=== PATIENT | female | born 1940 | race Caucasian/White ===

== ENCOUNTER 2020-01-24 21:33 | Observation (INO) | payer MEDICARE, SELFPAY ==
--- NOTE | ~2020-01-24 | CT_ITS ---
EXAMINATION: CT abdomen pelvis w con EXAM DATE: 01/24/2020 22:34 INDICATION: Abdominal pain, fever, flank pain. TECHNIQUE: Spiral CT of the abdomen and pelvis was performed following intravenous injection of 100 m L Omnipaque 350. Axial, coronal and sagittal images were reviewed. The dose-length product (DLP) fo r this examination was 678.92 mGy-cm. The exposure was tailored according to patient size (auto mA e xposure control), and iterative reconstruction (ASIR) was used as additional dose reduction technique . There is no prior study for comparison. FINDINGS: There is a hypodensity in the left liver lobe measuring 1.1 cm consistent with a cyst. The spleen, pancreas, and adrenal glands are unremarkable. Gallbladder is unremarkable. No biliary obs truction. There are regions of mildly heterogeneous left renal parenchymal enhancement, possible escobar lonephritis. Please correlate with urinalysis. There is a nonobstructing stone in the dependent aspec t of the left renal pelvis measuring 1.3 cm. The uterus is unremarkable. The bladder is severely d istended. There is no retroperitoneal or pelvic lymphadenopathy. There is mild to moderate scatter ed arteriosclerotic disease. The appendix is normal. The stomach and small bowel are unremarkable. There is expected amount of c olonic stool. No free intraperitoneal gas. The heart is normal in size. There are no pericardial or pleural effusions. The lung bases are unremarkable. There are no osteoblastic or osteolytic les ions identified. IMPRESSION: 1. Possible left-sided pyelonephritis. 2. Severely distended bladder (neurogenic?). 3. Left renal pelvic nonobstructing 1.3 cm stone. Reviewed, dictated and finalized at location A.
[2020-01-24 21:40] VITALS: BP 164/74; PULSE 124; RESP 21; TEMP 37.1; O2SAT 100
--- NOTE | 2020-01-24 21:55 | ED.ABDPAIN ---
HPI - Abdominal Pain General Chief Complaint: Urogenital-Female Stated Complaint: fever, flank pain Time Seen by Provider: 01/24/20 21:39 Source: patient and RN notes reviewed Mode of arrival: ambulatory Limitations: no limitations History of Present Illness HPI narrative: Pt is a 79 y/o female who presents to the ED with c/o lt flank pain starting this afternoon. She notes that she has a Hx of chronic urinary retention, stating that she is normally catheterizes herself several times per day. Pt notes that she began feeling sick around 16:00 this afternoon. She reports pain in her lt flank, cramping in her suprapubic region, nausea, and a frontal headache. Pt also notes having a fever, but denies any vomiting, SOB, cough, or dysuria. She notes that she hasn't taken any Tylenol for her symptoms. MD elicited complaint: flank pain Onset (ago): hour(s) (several) Location: L flank Associated symptoms: nausea, fever and other (suprapubic cramping; frontal headache; urinary retention (chronic)) Related Data Home Medications Medication Instructions Recorded Confirmed cholecalciferol (vitamin D3) 100 mcg PO DAILY 01/24/20 [Vitamin D3] hawthorn [hawthorn ann] 500 mg PO 01/24/20 metoprolol tartrate 12.5 mg PO BID 01/24/20 zinc 50 mg PO DAILY 01/24/20 Allergies Allergy/AdvReac Type Severity Reaction Status Date / Time No Known Allergies Allergy Verified 01/24/20 21:44 Review of Systems Review of Systems: All systems reviewed & are unremarkable except as noted in HPI and below Constitutional: Constitutional: Reports fever(s) and Reports headache(s) (frontal) Respiratory: Respiratory: Denies cough and Denies dyspnea Gastrointestinal: Gastrointestinal: Reports abdominal pain (suprapubic cramping), Reports nausea and Denies vomiting Genitourinary: Genitourinary: Denies dysuria, Reports flank pain (lt flank pain) and Reports other (urinary retention (chronic)) [facility] Past Medical History Medical History (Updated 01/25/20 @ 00:52 by Mando Morin DO) History of urinary retention Surgical History Surgical History Surgical history unknown Social History Social History Smoking status: Unknown if ever smoked Exam Narrative: Exam Narrative: APPEARANCE: No acute distress, nontoxic, resting in bed EYES: EOMI HEENT: Normocephalic, atraumatic, OMM RESPIRATORY: No respiratory distress Clear to auscultation bilaterally with no rhonchi wheezing or rales. CARDIOVASCULAR: Tachycardic and regular without murmurs rubs or gallops. ABDOMINAL: Soft, nontender, nondistended, no rebound or guarding during palpation left flank MUSCULOSKELETAl: Moves all extremities. No clubbing, cyanosis or edema. NEURO: Awake and alert. Following commands, speech normal, no focal deficits SKIN:: Warm, dry. No rashes lesions or abrasions PSYCHIATRIC: Normal affect/mood, Course Course Emergency Course: Patient did complain of some lower midsternal and epigastric chest pain EKG was obtained that showed left bundle branch block. The patient was given a GI cocktail with resolution of the pain. The patient not taken her evening metoprolol 12.5 mg and did take it in the ER Discussed with patient and family results of workup and diagnosis. Discussed need for admission. Patient and family understand and agree to current treatment plan Consultations Consultation #1: Discussed case with hospitalist, Dr. Arzola. He accepts admission. Would like urology consulted. Date: 01/24/20 Time: 23:26 Consultation #2: Discussed case with urologist, Dr. Matthews. He agrees with consult. Would like me to put in catheter. Date: 01/25/20 Time: 00:06 Vital Signs Vital signs: Vital Signs Temperature 98.7 F 01/24/20 21:40 Pulse Rate 124 H 01/24/20 21:40 Respiratory Rate 21 H 01/24/20 21:40 Blood Pressure 164/74 H 01/24/20 21:40 Pulse Oximetry 100 01/24/20 21:
[2020-01-24 22:06] LABS: Basophils Absolute Auto 0.1 K/mm3 (0.0-0.1); Basophils Percent Auto 0.7 % (0.2-1.2); Eosinophils Absolute Auto 0.1 K/mm3 (0-0.3); Eosinophils Percent Auto 1.5 % (0-4.4); Immature Granulocyte Absolute 0.02 K/mm3 (0.00-0.031); Immature Granulocyte Percent A 0.2 % (0-0.5); Lymphocytes Absolute Auto 0.83 K/mm3 (0.9-3.2); Lymphocytes Percent Auto 9.7 % (18.3-44.2); Mean Corpuscular HGB Conc 32.6 g/dl (32-36); Mean Corpuscular Hemoglobin 30.7 pg (26-34); Mean Corpuscular Volume 94.3 fl (80-100); Mean Platelet Volume 11.1 fl (7.4-10.4); Monocytes Absolute Auto 0.3 K/mm3 (0.1-0.6); Monocytes Percent Auto 3.4 % (2.6-8.5); Neutrophils Absolute Auto 7.2 K/mm3 (1.3-6.7); Neutrophils Percent Auto 84.5 % (45.5-73.1); Platelet Count Result 207 k/mm3 (150-375); Red Blood Count 4.88 M/mm3 (4.2-5.4); Red Cell Distribution Width 12.9 % (11.5-14.5); White Blood Count 8.6 K/mm3 (4.5-10.0)
[2020-01-24] MEDS: SODIUM CHLORIDE 0.9% IV 1,000 ML 999 ML IV CONT (22:16)
[2020-01-24 22:18] LABS: Alanine Aminotransferase 15 U/L (4-35); Albumin Level 4.8 g/dL (3.5-5.1); Alkaline Phosphatase 75 U/L (38-126); Aspartate Amino Transferase 26 U/L (14-36); Bilirubin,Total 0.3 mg/dL (0.2-1.3); Blood Urea Nitrogen 17 mg/dL (7-17); Calcium 9.3 mg/dL (8.4-10.2); Carbon Dioxide 29 mmol/L (22-30); Chloride 100 mmol/L (98-107); Estimated CRCL calculation 42 ml/min; Estimated Glomerular Filt Rate 60; Glucose 115 mg/dL (65-105); Potassium 4.3 mmol/L (3.4-5.0); Sodium 138 mmol/L (137-145)
--- NOTE | 2020-01-24 22:41 | ECG_ITS ---
Measurements Intervals [place] Rate: 107 P: 62 NM: 191 QRS: -28 QRSD: 132 T: 122 QT: 375 QTc: 501 Interpretive Statements SINUS TACHYCARDIA VENTRICULAR PREMATURE COMPLEX LEFT BUNDLE BRANCH BLOCK ABNORMAL ECG Electronically Signed On 01-25-2020 7:06:13 CDT by Senthil Hernandez D.O.
[2020-01-24 23:06] VITALS: BP 145/53; PULSE 109; RESP 17; O2SAT 98
[2020-01-24 23:18] LABS: Add Urine Microscopic? YES; Appearance Urine Clear (Clear); Bacteria Urine Trace /hpf; Bilirubin Urine Negative (Negative); Blood Urine 1+ (Negative); Color Urine Straw (Yellow); Glucose Urine UA Negative (Negative); Ketones Urine Negative (Negative); Leukocyte Esterase Ur 2+ LEU/UL (Negative); Nitrate Urine Positive (Negative); Protein Urine 1+ mg/dL (Negative); RBC Urine 0-2 /hpf (0-2); Specific Grav Ur 1.005 (1.001-1.035); Urobilinogen Urine Negative mg/dL (<2.0)
[2020-01-24 23:22] LABS: Troponin I < 0.012 ng/mL (0.000-0.034)
[2020-01-24 23:43] LABS: Magnesium 2.3 mg/dL (1.6-2.3)
[2020-01-24 23:59] VITALS: BP 122/58; PULSE 102; RESP 14; O2SAT 98
[2020-01-25] VITALS (9 sets, daily range): BP systolic 99–123; BP diastolic 37–49; PULSE 72–100; RESP 16–18; TEMP 36.1–37.7; O2SAT 96–99; BMI 25.7
[2020-01-25 00:23] LABS: Basophils Absolute Auto 0.1 K/mm3 (0.0-0.1); Basophils Percent Auto 0.6 % (0.2-1.2); Eosinophils Absolute Auto 0.1 K/mm3 (0-0.3); Eosinophils Percent Auto 0.7 % (0-4.4); Hematocrit 41.5 % (37.0-47.0); Hemoglobin 13.7 g/dL (12.0-15.0); Immature Granulocyte Absolute 0.05 K/mm3 (0.00-0.031); Immature Granulocyte Percent A 0.5 % (0-0.5); Lymphocytes Absolute Auto 0.28 K/mm3 (0.9-3.2); Mean Corpuscular Volume 93.9 fl (80-100); Mean Platelet Volume 11.6 fl (7.4-10.4); Monocytes Absolute Auto 0.5 K/mm3 (0.1-0.6); Monocytes Percent Auto 5.5 % (2.6-8.5); Neutrophils Absolute Auto 8.4 K/mm3 (1.3-6.7); Neutrophils Percent Auto 89.7 % (45.5-73.1); Platelet Count Result 160 k/mm3 (150-375); Red Blood Count 4.42 M/mm3 (4.2-5.4); Red Cell Distribution Width 12.9 % (11.5-14.5); White Blood Count 9.4 K/mm3 (4.5-10.0)
[2020-01-25 00:35] LABS: Lactic Acid Reflex 1.9 mmol/L (0.7-2.1)
[2020-01-25] MEDS: SODIUM CHLORIDE 0.9% IV 1,000 ML 125 ML IV CONT ×2 (01:00→07:47)
[2020-01-25 01:15] LABS: Blood Urea Nitrogen 16 mg/dL (7-17); Calcium 8.4 mg/dL (8.4-10.2); Carbon Dioxide 23 mmol/L (22-30); Chloride 107 mmol/L (98-107); Estimated CRCL calculation 47 ml/min; Estimated Glomerular Filt Rate > 60; Glucose 122 mg/dL (65-105); Potassium 4.3 mmol/L (3.4-5.0); Sodium 135 mmol/L (137-145)
--- NOTE | 2020-01-25 01:28 | PC.NURSE ---
This patient, Charlotte Pandya, was admitted to IMU Room 211-01. Patient/family oriented to hospital policies and general routines including ID bracelet, bed and alarms, visiting hours, pain management, procedures, bathroom and other care routines, personal items, smoking policy, room service/diet, and visiting hours. Valuables list has been completed. Information on how to activate the Rapid Response Team has been discussed. Patient/Family are encouraged to report perceived risks to care and to ask questions if they do not understand what they are told or what they should do.
--- NOTE | 2020-01-25 02:04 | PM.IMHP ---
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 with a complaint of left lower back and flank pain that started yesterday afternoon. She denies any dysuria or gross hematuria but she has noticed that her urine has a foul smell. Associated symptoms included fever w/ a Tmax of 100.5 F, dizzyness, suprapubic pain, and nausea. She denies any vomiting, diarrhea, or rectal bleeding. She also experienced palpitations at home today. The patient was evaluated in the ER [facility] and was found to have possible left sided pyelonephritis on CT. On her way back from radiology she started to experience mid sternal chest pressure. She was given a GI cocktail in the ER which relieved her discomfort. ON my encounter with her she still has some mile left flank pain but denies any other symptoms. Her last UTI was about 3 years ago. She hasn't been on any antibiotics recently. Urology was consulted by ER provider. Review of Systems Review of Systems: All systems reviewed & are unremarkable except as noted in HPI and below PMFSH Past Medical History Medical History (Updated 01/25/20 @ 02:24 by Lester Arzola MD) Breast cancer CAD (coronary artery disease) History of urinary retention Urinary retention Surgical History Surgical History (Updated 01/25/20 @ 02:17 by Lester Arzola MD) History of coronary artery stent placement Status post left breast lumpectomy Surgical history unknown Family History Family History (Updated 01/25/20 @ 01:56 by Tracey Jean RN) Other Unknown family medical history Social History Social History (Updated 01/25/20 @ 02:18 by Lester Arzola MD) Smoking status: Former smoker Alcohol intake: never Substance use: never Substance use type: does not use Spiritual care concerns: No Agree to blood products: Yes Comments Family medical hx is unremarkable. Meds Home Medications and Allergies Home Medications Medication Instructions Recorded Confirmed Type cholecalciferol (vitamin D3) 100 mcg PO DAILY 01/24/20 01/25/20 History [Vitamin D3] hawthorn [hawthorn ann] 500 mg PO DAILY 01/24/20 01/25/20 History metoprolol tartrate 12.5 mg PO BID 01/24/20 01/25/20 History zinc 50 mg PO DAILY 01/24/20 01/25/20 History Allergies Allergy/AdvReac Type Severity Reaction Status Date / Time No Known Allergies Allergy Verified 01/24/20 21:44 Vital Signs Vital Signs - 24 hr 01/24/20 21:40 01/24/20 23:06 01/24/20 23:59 Temperature 37.1 C Pulse Rate 124 H 109 H 102 H Respiratory Rate 21 H 17 14 Blood Pressure 164/74 H 145/53 H 122/58 L Pulse Oximetry 100 98 98 01/25/20 00:45 01/25/20 01:01 Temperature 36.9 C Pulse Rate 94 89 Respiratory Rate 17 18 Blood Pressure 117/49 L 123/49 L Pulse Oximetry 99 96 Exam Const: General: cooperative, no acute distress, alert and awake Nutritional Appearance: well nourished Orientation/consciousness: patient oriented x3 HENMT: Head: normal to inspection General nose exam: Normal external nose present Face and sinus: normal facial exam Mouth: Yes Normal oral and palatal mucosa present and Yes oropharynx normal Eyes: Pupils: Equal, round and reactive pupils present EOM: EOMs intact bilaterally Neck: Neck: supple and no JVD Thyroid: thyroid normal Lymphatic: lymphadenopathy not noted Chest: Other: No chest wall pressure on palpation+ Resp: Effort & Inspection: normal respiratory effort Auscultation: clear to auscultation bilaterally Cardio: Rate: regular rate Rhythm: regular rhythm Heart sounds: no murmurs GI: Inspection: normal to inspection Auscultation: normal bowel sounds Back/Spine/Pelvis: Back: CVA tenderness (Left sided++ ) Ski
[2020-01-25 03:24] LABS: Troponin I < 0.012 ng/mL (0.000-0.034)
[2020-01-25 06:14] LABS: Basophils Absolute Auto 0.1 K/mm3 (0.0-0.1); Basophils Percent Auto 0.5 % (0.2-1.2); Eosinophils Percent Auto 0.2 % (0-4.4); Hematocrit 40.5 % (37.0-47.0); Hemoglobin 13.6 g/dL (12.0-15.0); Immature Granulocyte Absolute 0.08 K/mm3 (0.00-0.031); Immature Granulocyte Percent A 0.8 % (0-0.5); Lymphocytes Absolute Auto 0.48 K/mm3 (0.9-3.2); Lymphocytes Percent Auto 4.6 % (18.3-44.2); Mean Corpuscular HGB Conc 33.6 g/dl (32-36); Mean Corpuscular Hemoglobin 31.2 pg (26-34); Mean Corpuscular Volume 92.9 fl (80-100); Mean Platelet Volume 11.3 fl (7.4-10.4); Monocytes Percent Auto 9.2 % (2.6-8.5); Neutrophils Absolute Auto 8.8 K/mm3 (1.3-6.7); Neutrophils Percent Auto 84.7 % (45.5-73.1); Platelet Count Result 162 k/mm3 (150-375); Red Blood Count 4.36 M/mm3 (4.2-5.4); Red Cell Distribution Width 12.8 % (11.5-14.5); White Blood Count 10.4 K/mm3 (4.5-10.0)
[2020-01-25 06:22] LABS: Blood Urea Nitrogen 13 mg/dL (7-17); Carbon Dioxide 23 mmol/L (22-30); Chloride 109 mmol/L (98-107); Estimated CRCL calculation 47 ml/min; Estimated Glomerular Filt Rate > 60; Glucose 119 mg/dL (65-105); Potassium 3.8 mmol/L (3.4-5.0); Sodium 135 mmol/L (137-145)
[2020-01-25 06:35] LABS: Troponin I 0.014 ng/mL (0.000-0.034)
[2020-01-25] MEDS: ZINC SULFATE 220 MG CAPSULE PO (10:00)
[2020-01-25] MEDS: METOPROLOL TARTRATE 12.5 MG TABLET PO (10:00)
--- NOTE | 2020-01-25 10:26 | WPDURCON ---
Assessment and Plan Assessment and plan (1) Calculus of renal pelvis: Code(s): N20.0 - Calculus of kidney Status: Acute (2) Urinary retention: Code(s): R33.9 - Retention of urine, unspecified Status: Chronic (3) Acute pyelonephritis: Code(s): N10 - Acute pyelonephritis Status: Acute Assessment and Plan: Patient appears to have a urinary tract infection with possible early pyelonephritis and a nonobstructing left. She is very anxious for discharge and I am agreeable to that with the understanding that she needs to contact us if she starts to develop significant fever. Her Bernard catheter can be removed and she will resume intermittent self catheterization as before. She can follow-up in 1-2 months at which time we will consider ESWL for her left renal stone. 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 Evaluation with CT scan of the abdomen and pelvis reveals a 13 millimeter nonobstructing left renal stone which she is known to be present for several years. Additionally, her urinalysis appeared to be slightly infected with mild pyuria. She has been admitted empirically started on ceftriaxone. In addition to the above the patient has a known atonic bladder and has been performing intermittent self catheterization for 4 years, without difficulty. Review of Systems Cardiovascular: Cardiovascular: Denies chest pain, Denies lightheadedness, Denies palpitations and Denies dyspnea Respiratory: Respiratory: Denies dyspnea Gastrointestinal: Gastrointestinal: Denies diarrhea, Denies nausea and Denies vomiting Genitourinary: Genitourinary: Denies hematuria and Denies dysuria Endocrine: Endocrine: Denies palpitations PMFSH Past Medical History Medical History Breast cancer CAD (coronary artery disease) History of urinary retention Urinary retention Surgical History Surgical History History of coronary artery stent placement Status post left breast lumpectomy Surgical history unknown Family History Family History Other Unknown family medical history Social History Social History Smoking status: Former smoker Alcohol intake: never Substance use: never Substance use type: does not use Spiritual care concerns: No Agree to blood products: Yes Meds Home Medications and Allergies Home Medications Medication Instructions Recorded Confirmed Type cholecalciferol (vitamin D3) 100 mcg PO DAILY 01/24/20 01/25/20 History [Vitamin D3] hawthorn [hawthorn ann] 500 mg PO DAILY 01/24/20 01/25/20 History metoprolol tartrate 12.5 mg PO BID 01/24/20 01/25/20 History zinc 50 mg PO DAILY 01/24/20 01/25/20 History Allergies Allergy/AdvReac Type Severity Reaction Status Date / Time No Known Allergies Allergy Verified 01/24/20 21:44 Vital Signs Vital Signs - 24 hr 01/24/20 21:40 01/24/20 23:06 01/24/20 23:59 Temperature 98.7 F Pulse Rate 124 H 109 H 102 H Respiratory Rate 21 H 17 14 Blood Pressure 164/74 H 145/53 H 122/58 L Pulse Oximetry 100 98 98 01/25/20 00:45 01/25/20 01:01 01/25/20 02:00 Temperature 98.5 F Pulse Rate 94 89 92 Respiratory Rate 17 18 Blood Pressure 117/49 L 123/49 L Pulse Oximetry 99 96 01/25/20 04:00 01/25/20 05:52 01/25/20 08:00 Temperature 99.8 F H 97.3 F L Pulse Rate 100 88 78 Respiratory Rate 18 16 Blood Pressure 116/49 L 116/37 L Pulse Oximetry 97 97 01/25/20 08:35 01/25/20 10:00 Temper
--- NOTE | 2020-01-25 11:42 | PM.DS ---
DS: Diagnosis Admitting Diagnosis Admitting Diagnosis: Acute pyelonephritis Discharge Diagnosis (1) Acute pyelonephritis: Code(s): N10 - Acute pyelonephritis Status: Acute Assessment and Plan: Patient presents with left sided back pain and noted to have mildly heterogeneous left renal parenchymal enhancement, possible pyelonephritis. UA showing 10-15WBC, 2+ LE. WBC normal. No fevers. There is a left renal pelvic 1.3cm stone that is nonobstructing. She was started on Rocephin. She feels well and is requesting discharge. (2) Chest pain: Qualifiers: Chest pain type: unspecified Qualified Code(s): R07.9 - Chest pain, unspecified Code(s): R07.9 - Chest pain, unspecified Status: Acute Assessment and Plan: Patient had chest pain in the ER and received a GI cocktail. Symptoms resolved. EKG showing left BBB and PVCs. She states she has a history of left BBB. She remained on Metoprolol but refused statin therapy and Aspirin. She voices understanding of the benefits of these medications but declines to take them. Nuclear stress test last year was negative. (3) Calculus of renal pelvis: Code(s): N20.0 - Calculus of kidney Status: Acute Assessment and Plan: As above. Patient aware of the stone. Will need to monitor for symptoms. Urology was consulted and appreciate their help. Plan for patient to follow up with Urology in 1-2 months at which time ESWL will be considered. (4) Urinary retention: Code(s): R33.9 - Retention of urine, unspecified Status: Chronic Assessment and Plan: Discussed with patient. She only self-caths 1-2x/day but should be 3-4x/day. CT scan showing a severely distended bladder. Renal function normal. Strongly encouraged her to be compliant with a the frequency of the straight caths. (5) CAD (coronary artery disease): Qualifiers: Associated angina: without angina Coronary Disease-Associated Artery/Lesion type: [place] artery [place] vs. transplanted heart: [place] heart Qualified Code(s): I25.10 - Atherosclerotic heart disease of [place] coronary artery without angina pectoris Code(s): I25.10 - Atherosclerotic heart disease of [place] coronary artery without angina pectoris Status: Chronic Assessment and Plan: As above. Continue Metoprolol. Patient will consider ASA and statin therapy. DS: Summary Hospital Course Reason for hospitalization: 79yo female here back pain. She did have chest pain in the ER but better with a GI cocktail. She had a chemical stress test that was normal in May. Please see H&P for details. Hospital Course: As above. Time Spent with Patient Time attestation: Total time spent providing and/or coordinating discharge services:34 minutes Time spent: Greater than 30 minutes Exam Narrative: Exam Narrative: AF 116/37 Gen - NARD Chest - CTA bilaterally, nml RR CV - RRR S1/S2; Tele showing PVCs Abd - soft, NT/ND. Bladder does not appear to be distended Ext - no pedla eema Psych - alert and appropriate Skin - warm and dry DS: Data Data Completed and Pending Labs on day of discharge: Labs from last 24 hours 01/25/20 01/25/20 01/25/20 05:58 05:58 05:58 WBC 10.4 H RBC 4.36 Hgb 13.6 Hct 40.5 MCV 92.9 MCH 31.2 MCHC 33.6 RDW 12.8 Plt Count 162 MPV 11.3 H Immature Gran % (Auto) 0.8 H Neut % (Auto) 84.7 H Lymph % (Auto) 4.6 L Tate % (Auto) 9.2 H Eos % (Auto) 0.2 Baso % (Auto) 0.5 Lymph # (Auto) 0.48 L Tate # (Auto) 1.0 H Eos # (Auto) 0.0 Baso # (Auto) 0.1 Abs Immat Gran (auto) 0.08 H Absolute Neuts (auto) 8.8 H Absolute Nucleated RBC 0.0 Nucleated RBC % 0.0 Sodium 135 L Potassium 3.8 Chloride 109 H Carbon Dioxide 23 BUN 13 Creatinine 0.80 Estim Creat Clear Calc 47 Estimated GFR > 60 Glucose 119 H Lactic Acid
--- NOTE | 2020-01-26 13:57 | PC.NURSE ---
Urine cx- multiple organisms each <10,000. External and internal genitalia normal elle, felt to be colonizers. Dr. Whitney villagran.
--- NOTE | 2020-01-31 13:32 | PC.NURSE ---
Blood cx is negative Dr. Olson aware.
== END 2020-01-25 12:50 | disposition home or self-care (01) ==
LOC: ANHED 23:36 → ANHIMU 01-25 00:18
PROVIDERS: Admitting Provider Family Medicine; Emergency Provider Emergency Medicine; PCP Internal Medicine; Visit Provider Internal Medicine
DX: N10 Acute pyelonephritis (principal); N20.0 Calculus of kidney; R33.8 Other retention of urine; R07.9 Chest pain, unspecified; I44.7 Left bundle-branch block, unspecified; I25.10 Atherosclerotic heart disease of native coronary artery without angina pectoris; Z95.5 Presence of coronary angioplasty implant and graft; Z79.899 Other long term (current) drug therapy
CPT/HCPCS: 36415; 51701; 74177; 80048; 80053; 81001; 83605; 83735; 84484; 85025; 87040; 87086; 87088; 93005; 96361; 96365; 96375; 99285; A9270; G0378; J0131; J0696; J7030; Q9967

== ENCOUNTER 2021-01-27 08:04 | Observation (INO) | payer MEDICARE, SELFPAY ==
[2021-01-27] VITALS (41 sets, daily range): BP systolic 125–187; BP diastolic 40–106; PULSE 55–99; RESP 11–28; TEMP 36.5–36.8; O2SAT 97–100
--- NOTE | ~2021-01-27 | CT_ITS ---
EXAMINATION: CT brain wo con DATE: 01/27/2021 10:37 INDICATION: Dizziness. Vertigo. TECHNIQUE: Computed tomography (CT) of the head was performed without intravenous contrast. The mA wa s adjusted according to patient size. Iterative reconstruction technique was employed. The dose-lengt h product was 605.33 mGy-cm. COMPARISON: None FINDINGS: There is no intracranial hemorrhage, acute infarction, or abnormal intracranial mass lesion . There are scattered areas of low attenuation in the cerebral white matter, which is within normal l imits for the patient's age. The ventricles are normal in size. There are likely changes of ocular le ns replacement surgeries. There is mild mucosal thickening in the ethmoid sinuses. The mastoid air ce lls are normal. IMPRESSION: 1. Normal aging brain. Reviewed, dictated and finalized at location A. IMPRESSION: 1. Normal aging brain.
--- NOTE | 2021-01-27 08:10 | ECG_ITS ---
Measurements Intervals [place] Rate: 61 P: 61 [place]: 167 QRS: -30 QRSD: 129 T: 78 QT: 441 QTc: 446 Interpretive Statements SINUS RHYTHM LEFT BUNDLE BRANCH BLOCK ABNORMAL ECG Electronically Signed On 01-28-2021 6:43:48 CDT by Senthil Hernandez D.O.
[2021-01-27] MEDS: SODIUM CHLORIDE 0.9% IV 500 ML 999 ML IV CONT ×2 (08:36→10:24)
[2021-01-27] MEDS: MECLIZINE HCL 25 MG TABLET PO ×2 (08:37→16:58)
[2021-01-27 08:39] LABS: Basophils Absolute Auto 0.1 K/mm3 (0.0-0.1); Basophils Percent Auto 1.9 % (0.2-1.2); Eosinophils Absolute Auto 0.3 K/mm3 (0-0.3); Eosinophils Percent Auto 6.9 % (0-4.4); Hematocrit 41.1 % (37.0-47.0); Immature Granulocyte Absolute 0.02 K/mm3 (0.00-0.031); Immature Granulocyte Percent A 0.5 % (0-0.5); Lymphocytes Absolute Auto 0.81 K/mm3 (0.9-3.2); Lymphocytes Percent Auto 19.1 % (18.3-44.2); Mean Corpuscular HGB Conc 34.1 g/dl (32-36); Mean Corpuscular Hemoglobin 32.1 pg (26-34); Mean Corpuscular Volume 94.3 fl (80-100); Mean Platelet Volume 10.6 fl (7.4-10.4); Monocytes Absolute Auto 0.4 K/mm3 (0.1-0.6); Monocytes Percent Auto 9.9 % (2.6-8.5); Neutrophils Absolute Auto 2.6 K/mm3 (1.3-6.7); Neutrophils Percent Auto 61.7 % (45.5-73.1); Platelet Count Result 197 k/mm3 (150-375); Red Blood Count 4.36 M/mm3 (4.2-5.4); Red Cell Distribution Width 12.7 % (11.5-14.5); White Blood Count 4.2 K/mm3 (4.5-10.0)
[2021-01-27 08:50] LABS: Anion Gap 5 mmol/L (8-16); Blood Urea Nitrogen 13 mg/dL (7-17); Calcium 8.5 mg/dL (8.4-10.2); Carbon Dioxide 26 mmol/L (22-30); Chloride 110 mmol/L (98-107); Estimated CRCL calculation 41 ml/min; Estimated Glomerular Filt Rate 60; Glucose 105 mg/dL (65-105); Potassium 4.3 mmol/L (3.4-5.0); Sodium 141 mmol/L (137-145)
[2021-01-27 08:57] LABS: Add Urine Microscopic? YES; Appearance Urine Cloudy (Clear); Bilirubin Urine Negative (Negative); Blood Urine Negative (Negative); Color Urine Yellow (Yellow); Glucose Urine UA Negative (Negative); Ketones Urine Negative (Negative); Leukocyte Esterase Ur Trace LEU/UL (Negative); Nitrate Urine Positive (Negative); Protein Urine Negative (Negative); RBC Urine 0-2 /hpf (0-2); Specific Grav Ur 1.006 (1.001-1.035); Squamous Epithelial Cell Urine Rare /hpf (Few); Urobilinogen Urine Negative mg/dL (<2.0); WBC Urine 0-3 /hpf
[2021-01-27] MEDS: diazePAM INJ (*CRX) 10 MG/2 ML SYRINGE 5 MG IV PUSH (10:25)
--- NOTE | 2021-01-27 11:25 | PC.NURSE ---
attempted to ambulate patient. patient unable to stand without dizziness
--- NOTE | 2021-01-27 11:43 | ED.DIZZY ---
HPI - Dizziness General Chief Complaint: Dizziness Stated Complaint: dizzy/nausea Time Seen by Provider: 01/27/21 08:08 History of Present Illness HPI Narrative: Patient is an 80-year-old female who presents ER with dizziness. Sudden onset after waking up. It is worse when she goes from lying to sitting or if she has any type of movement. No slurred speech or facial droop. No extremity weakness. Denies sinus congestion or sore throat or productive cough. No ear pressure or tinnitus. Symptoms are only improved by sitting still. Patient becomes very nauseated with her dizziness. Related Data Home Medications Medication Instructions Recorded Confirmed Vitamin D3 100 mcg PO DAILY 01/24/20 01/25/20 hawthorn ann 500 mg PO DAILY 01/24/20 01/25/20 metoprolol tartrate 12.5 mg PO BID 01/24/20 01/25/20 zinc 50 mg PO DAILY 01/24/20 01/25/20 Allergies Allergy/AdvReac Type Severity Reaction Status Date / Time No Known Allergies Allergy Verified 01/24/20 21:44 Review of Systems Review of Systems: All systems reviewed & are unremarkable except as noted in HPI and below Constitutional: Constitutional: Denies chills, Denies fever(s) and Denies weakness ENT: Reports dizziness, Denies nasal congestion and Denies sore throat Cardiovascular: Cardiovascular: Denies chest pain, Denies rapid heart rate and Denies radiating jaw, neck or arm pain Respiratory: Respiratory: Denies cough and Denies dyspnea Neurologic: Denies syncope, Denies headache(s), Denies focal weakness and Denies numbness [facility] Past Medical History Medical History (Updated 01/27/21 @ 14:07 by Arnie Roper MD) Breast cancer CAD (coronary artery disease) History of urinary retention Urinary retention Surgical History Surgical History History of coronary artery stent placement Status post left breast lumpectomy Surgical history unknown Family History Family History Other Unknown family medical history Social History Social History Smoking status: Former smoker Alcohol intake: never Substance use: never Substance use type: does not use Spiritual care concerns: No Agree to blood products: Yes Exam Narrative: Exam Narrative: GENERAL: Well-appearing, well-nourished, and in no acute distress. HEAD: Normocephalic, atraumatic. EYES: PERRL and EOMI. ENT: Mucous membranes moist. CHEST: Clear to auscultation. No respiratory distress. HEART: Regular rate and rhythm. Normal peripheral pulses. ABDOMEN: Soft, nontender, nondistended. EXTREMITIES: Normal range of motion. No edema. SKIN: Warm, dry, no rash. NEURO: Cranial nerves II through XII intact. Unable to ambulate when going from sitting to standing due to being extremely dizzy. No drift. Alert and oriented x3. PSYCH: Normal mood and affect. Course Course Emergency Course: Attempted ambulation x2 and patient unable to perform this. Admit for observation. Vital Signs Vital signs: Vital Signs Temperature 98.3 F 01/27/21 08:04 Pulse Rate 67 01/27/21 08:04 Respiratory Rate 15 01/27/21 08:04 Blood Pressure 187/66 H 01/27/21 08:04 Pulse Oximetry 100 01/27/21 08:04 Temperature 98.3 F 01/27/21 08:04 Pulse Rate 66 01/27/21 14:01 Respiratory Rate 12 01/27/21 14:01 Blood Pressure 180/69 H 01/27/21 14:01 Pulse Oximetry 97 01/27/21 11:16 MDM - Dizziness Lab Data Result diagrams: 01/27/21 08:31 01/27/21 08:31 Labs: Lab Results 01/27/21 01/27/21 01/27/21 Range/Units 08:31 08:31 08:37 WBC 4.2 L (4.5-10.0) K/mm3 RBC 4.36 (4.2-5.4) M/mm3 Hgb 14.0 (12.0-15.0) g/dL Hct 41.1 (37.0-47.0) % MCV 94.3 (80-100) fl MCH 32.1 (26-34) pg MCHC 34.1 (32-36) g/dl RDW 12.7 (11.5-14.5) % Plt Count 197 (150-375) k/
--- NOTE | 2021-01-27 16:17 | PC.NURSE ---
This patient, Charlotte Pandya, was admitted to 3 Med Surg Room 302-01 on 01/27/21 @ 1450. Patient/family oriented to hospital policies and general routines including ID bracelet, bed and alarms, visiting hours, pain management, procedures, bathroom and other care routines, personal items, smoking policy, room service/diet, and visiting hours. Information on how to activate the Rapid Response Team has been discussed. Patient/Family are encouraged to report perceived risks to care and to ask questions if they do not understand what they are told or what they should do.
--- NOTE | 2021-01-27 20:44 | PM.IMHP ---
H&P: HPI History of Present Illness Date/Time: 01/27/21 20:44 Chief Complaint: Dizziness today. Narrative: This is an 80-year-old female with known history of previous left-sided breast cancer, hypertension, chronic urinary retention, hit and vertigo who presented to the hospital with a complaint of dizziness upon waking up today. Patient complains that she woke up around 630 this morning [place] she felt very dizzy. Her dizziness persisted throughout most of the day and she described at any time she moved her head especially if she bent forward that she would get severely dizzy. Her dizziness subsides when she sits still and does not move. Associated symptoms included a mild posterior headache which has resolved, nausea, and 1 episode of vomiting. She denies any other focal neurological symptoms. She denies any recent head trauma or falls. She denies any ear ringing or hearing loss today. She also denies any blurry vision, double vision, facial droop, slurred speech, numbness or tingling, focal weakness, difficulty swallowing, seizure-like activity, or other focal neurological symptoms. The patient also denies any recent fevers, neck stiffness, chills, shortness of breath, chest pain, cough, congestion, abdominal pain, dysuria, hematuria, diarrhea, or rectal bleeding. The patient reports that she went off of lisinopril approximately 1 month ago and 2 weeks ago she started a supplement called rip 40 which is a nitric oxide formula. The patient was evaluated emergency room and routine labs and CT brain were obtained and were unremarkable. She was treated with meclizine, diazepam, and IV fluids. The patient was admitted to the hospital for her intractable dizziness. On my encounter with the patient tonight she states that she feels much better and her dizziness has subsided. She is currently asymptomatic. Review of Systems Review of Systems: All systems reviewed & are unremarkable except as noted in HPI and below PMFSH Past Medical History Medical History (Updated 01/27/21 @ 20:54 by Lester Arzola MD) Breast cancer CAD (coronary artery disease) Chronic hypertension History of urinary retention Urinary retention Surgical History Surgical History History of coronary artery stent placement Status post left breast lumpectomy Surgical history unknown Family History Family History Other Unknown family medical history Social History Social History Smoking status: Former smoker Alcohol intake: never Substance use: never Substance use type: does not use Spiritual care concerns: No Agree to blood products: Yes Meds Home Medications and Allergies Home Medications Medication Instructions Recorded Confirmed Type metoprolol tartrate 12.5 mg PO BID 01/24/20 01/27/21 History cranberry extract [cranberry] 250 mg PO DAILY 01/27/21 01/27/21 History d-mannose 1 ea PO BID 01/27/21 01/27/21 History Allergies Allergy/AdvReac Type Severity Reaction Status Date / Time No Known Allergies Allergy Verified 01/24/20 21:44 Vital Signs Vital Signs - 24 hr 01/27/21 08:04 01/27/21 08:21 01/27/21 08:35 Temperature 36.8 C Pulse Rate 67 59 L 69 Respiratory Rate 15 11 L 20 Blood Pressure 187/66 H Pulse Oximetry 100 98 100 01/27/21 08:45 01/27/21 08:46 01/27/21 09:03 Temperature Pulse Rate 73 67 66 Respiratory Rate 21 H 15 14 Blood Pressure 163/100 H Pulse Oximetry 100 100 100 01/27/21 09:28 01/27/21 09:36 01/27/21 09:45 Temperature Pulse Rate 60 56 L 55 L Respiratory Rate 17 20 18 Blood Pressure 132/51 L Pulse Oximetry 99 98 98 01/27/21 10:00 01/27/21 10:01 01/27/21 10:04 Temperature Pulse Rate 77 68 72 Respiratory Rate 21 H 16 20 Blood Pressure 138/54 L 176/64 H Pulse Oximetry 99
[2021-01-27] MEDS: SODIUM CHLORIDE 0.9% IV 1,000 ML 100 ML IV CONT (21:19)
[2021-01-28 06:00] VITALS: BP 142/58; PULSE 72; RESP 18; TEMP 36.6; O2SAT 100
[2021-01-28 06:05] LABS: Basophils Absolute Auto 0.1 K/mm3 (0.0-0.1); Eosinophils Absolute Auto 0.3 K/mm3 (0-0.3); Eosinophils Percent Auto 7.1 % (0-4.4); Hematocrit 42.4 % (37.0-47.0); Hemoglobin 14.2 g/dL (12.0-15.0); Immature Granulocyte Absolute 0.02 K/mm3 (0.00-0.031); Immature Granulocyte Percent A 0.4 % (0-0.5); Lymphocytes Percent Auto 28.8 % (18.3-44.2); Mean Corpuscular HGB Conc 33.5 g/dl (32-36); Mean Corpuscular Hemoglobin 31.1 pg (26-34); Mean Corpuscular Volume 92.8 fl (80-100); Mean Platelet Volume 10.8 fl (7.4-10.4); Monocytes Absolute Auto 0.4 K/mm3 (0.1-0.6); Monocytes Percent Auto 9.3 % (2.6-8.5); Neutrophils Absolute Auto 2.4 K/mm3 (1.3-6.7); Neutrophils Percent Auto 52.4 % (45.5-73.1); Platelet Count Result 229 k/mm3 (150-375); Red Blood Count 4.57 M/mm3 (4.2-5.4); Red Cell Distribution Width 12.7 % (11.5-14.5); White Blood Count 4.5 K/mm3 (4.5-10.0)
[2021-01-28 06:26] LABS: Anion Gap 3 mmol/L (8-16); Blood Urea Nitrogen 13 mg/dL (7-17); Calcium 8.5 mg/dL (8.4-10.2); Carbon Dioxide 28 mmol/L (22-30); Chloride 110 mmol/L (98-107); Estimated CRCL calculation 41 ml/min; Estimated Glomerular Filt Rate 60; Glucose 103 mg/dL (65-105); Potassium 4.2 mmol/L (3.4-5.0); Sodium 141 mmol/L (137-145)
[2021-01-28 08:37] LABS: Free T4 Free Thyroxine Reflex 0.74 ng/dL (0.78-2.19)
--- NOTE | 2021-01-28 10:54 | PM.DS ---
DS: Admitting Diagnosis Admitting Diagnosis Admitting Diagnosis: Dizziness DS: Discharge Diagnosis Discharge Diagnosis (1) Dizziness: Code(s): R42 - Dizziness and giddiness Status: Acute Assessment and Plan: Date of Admission 01/27/21 Date of Discharge 01/28/21 Ms. Pandya is an 80yo F with history of previous left-sided breast cancer, hypertension, chronic urinary retention, vertigo who presented to the ED for evaluation of dizziness upon waking up yesterday morning. She noted she woke up around 6:30 AM, try to sit and felt very dizzy. Her dizziness persisted throughout most of the day and was worsened by leaning forward, improved when she sits still and does not move. She was treated with meclizine, diazepam, and IV fluids. Symptoms improved quickly and her dizziness was resolved by the time of my encounter. It was felt that her symptoms were most consistent with her history of vertigo. CT brain demonstrated no acute intracranial abnormalities. She continues to do her straight catheterizations for chronic urinary retention. She is provided an order for PT vestibular therapy outpatient if her dizziness returns or worsens. She was hemodynamically stable for discharge on 01/28/2021 with instructions to follow-up with PCP. TSH is 10.3, free T4 is 0.74. Recommended she follow up with her PCP for repeat labs. (2) Chronic hypertension: Code(s): I10 - Essential (primary) hypertension Status: Chronic Assessment and Plan: Metoprolol initially held secondary to dizziness, resumed prior to discharge. BP stable. (3) Urinary retention: Code(s): R33.9 - Retention of urine, unspecified Status: Chronic Assessment and Plan: Continue to straight cath. DS: Summary Hospital Course Hospital Course: See above. Time Spent with Patient Time attestation: Total time spent providing and/or coordinating discharge services: 35 minutes. Exam Narrative: Exam Narrative: General: Female resting comfortably sitting up in bed in no acute distress. HEENT: Normocephalic, EOMI, oral mucosa moist. Cardiovascular: Rate and rhythm are regular. Respiratory: Lungs clear to auscultation bilaterally. Respirations even and non-labored. Abdomen: Soft, non-tender, non-distended, bowel sounds present. Extremities: Peripheral pulses intact. No edema. Neuro: Awake and alert. No focal neurological deficits. Speech is clear. DS: Data Data Completed and Pending Labs on day of discharge: Last Vital Signs Temp 98.0 F 01/28/21 14:00 Pulse 58 L 01/28/21 14:00 Resp 16 01/28/21 14:00 BP 122/48 L 01/28/21 14:00 Pulse Ox 99 01/28/21 14:[address] 01/27/21 10:39 IMPRESSION: 1. Normal aging brain. Laboratory Tests 01/28/21 05:34 01/28/21 05:34 Discharge Plan Discharge Attending physician on discharge: Lesly López Consulting providers: Jaimie Everett ; Tonny Alfred V. ; Lester Arzola ; Senthil Hernandez Discharging Clinician: Jaimie Everett Anticipated Discharge Date/Time: 01/28/21 12:00 Patient Disposition: Home, Self-Care Activity: as tolerated Diet: as tolerated Discharge Instructions: Call to schedule a hospital follow up appointment with Dr Chandra in 1 to 2 weeks, or sooner if you are feeling poorly. Your symptoms yesterday seem consistent with vertigo - see attached information for more details. CT scan of your brain is normal. You have two components of blood work that are abnormal indicating you may have an issue with low thyroid hormone. Please use this order to get your blood work re-checked in 1 week and speak with your primary care provider if they recommend starting new thyroid medication. You are provided an order on your paperwork to go to physical therapy for specialized vesti
[2021-01-28 12:18] VITALS: PULSE 84
[2021-01-28] MEDS: METOPROLOL TARTRATE 12.5 MG TABLET PO (12:18)
[2021-01-28 12:45] VITALS: O2SAT 98
[2021-01-28 14:00] VITALS: BP 122/48; PULSE 58; RESP 16; TEMP 36.7; O2SAT 99
[2021-01-28] MEDS: ACETAMINOPHEN 325 MG TABLET 650 MG PO (17:27)
== END 2021-01-28 19:00 | disposition home or self-care (01) ==
LOC: ANHED 09:13 → ANH3MEDSUR 14:06
PROVIDERS: Family Medicine; Admitting Provider Internal Medicine; Emergency Provider Emergency Medicine; PCP Internal Medicine; Visit Provider Family Medicine
DX: R42 Dizziness and giddiness (principal); R11.0 Nausea; I10 Essential (primary) hypertension; R33.8 Other retention of urine; I25.10 Atherosclerotic heart disease of native coronary artery without angina pectoris; Z95.5 Presence of coronary angioplasty implant and graft; Z85.3 Personal history of malignant neoplasm of breast; Z87.891 Personal history of nicotine dependence
CPT/HCPCS: 36415; 51701; 70450; 80048; 81001; 83735; 84439; 84443; 85025; 93005; 96361; 96374; 97161; 97165; 99285; A9270; G0378; J3360; J7030; J7040

== ENCOUNTER 2021-03-04 13:00 | Outpatient (RCR) | payer MEDICARE, SELFPAY ==
--- NOTE | 2021-02-21 10:23 | PTOPEVAL ---
PHYSICAL THERAPY EVALUATOIN AND PLAN OF CARE 02-21-21 Thank you for referring Charlotte Pandya to [facility], for the diagnosis of dizziness. She is scheduled to be seen for therapy? 1-2 x/week for 4 weeks. Please review, sign, date and return this plan of care TOMY. I agree with and certify that the following plan of care is medically necessary. Referring Physician Date Attending Provider: Luis Chandra MD, who will follow up with pt Referring Provider: HARRIS Hutton, hospitalist at [facility] *PT Outpatient Evaluation Document 02/21/21 09:10 RONNELL (Rec: 02/21/21 10:23 RONNELL [id number]) Past Medical History Neurological History Hx Neurological Disorders No Significant History Cardiovascular History Hx Cardiac Surgery Yes: 4 stents Hx Chest Pain Yes Hx Hypercholesterolemia Yes Hx Hypertension Yes: meds Hx Palpitations Yes Respiratory History Hx Respiratory Disorders No Significant History Gastrointestinal History Hx Gastrointestinal Disorders No Significant History Genitourinary History Hx Kidney Stones Yes Hx Urinary Tract Infection Yes Hx Other Genitourinary Disorders Yes: urinary retention/self caths at home BID Musculoskeletal History Hx Arthritis Yes: knee/hips Hx Other Musculoskeletal Disorders Yes: headaches, neck and shoulder tension Hematological History Hx Hematological Disorders No Significant History Endocrine History Hx Endocrine Disorders No Significant History HEENT History Hx Cataracts Yes: B eye surgery Hx Other HEENT Disorders Yes: use reading glasses;more issues with distant vision;3 mo ago eye exam Integumentary History Hx Skin Disorders No Significant History Reproductive History Hx Post Menopausal Yes Psychosocial History Hx Psychiatric Disorders No Significant History Pain History History of Any Previous or Ongoing No Significant History Instance of Pain Other History Hx Cancer Yes: Breast cancer Hx Radiation Therapy Yes Hx Other Medical Conditions Yes: not have COVID, but her sister living with her did;pt had vaccine Evaluation Information Problem Diagnosis dizziness Onset January 26, 2021 Prior Level of Function Activity Level (Last 3 Months) Occupation retired Hand Dominance Left Activity of Daily Living Ability Independent Indoor/Home Mobility Independent Community Mobility Independent Stairs Ability Independent
--- NOTE | 2021-03-04 15:59 | PTOPEVAL ---
PHYSICAL THERAPY DISCHARGE 03-04-21 Thank you for referring Charlotte Pandya to [facility].? The goals have been achieved, except the score for the self assessment functional activity rating. Please review, sign, date and return this discharge TOMY. I agree with and certify that the following plan of care is medically necessary. Referring Physician Date Attending Provider: Luis Chandra MD Referring Provider: HARRIS Hutton *PT Outpatient Discharge Document 03/04/21 13:50 RONNELL (Rec: 03/04/21 15:59 RONNELL [id number]) Assessment Status Discharge Subjective Information Samra reports: feel like she Query Text:As Reported By Patient/ is doing better and wants to Family be discharged from PT; has not had dizziness at all, except this AM, when she first woke up and sat at the edge of the bed, had some light headedness, after sitting about 30 seconds, it was gone; has an appointment for hearing test and eye exam for new glasses; neck is better- moving more and not hurting as much; reading does not bother her; Pain Assessment Timing of Pain Assessment Timing of Pain Assessment Assessment Self Report Self Report Pain Level 0 Pain Score Pain Score 0: Self Report Vestibular Evaluation Vestibular Balance Vestibular Balance Comments Dizziness Handicap Index self assessment score of 18/100; performed without any issues or loss of balance: - walking with looking up/down - rolling in supine to R/L; Discussed: continue to perform neck stretching exercises and heat PRN; continue to monitor lightheadedness with initial sitting: monitor water, food, meds and allow for feeling to pass before standing up; She voiced a good understanding of education and safety; PT Clinical Summary Clinical Summary Protocol: PTEVCODE PT Clinical Summary Mrs. Pandya has received 4 PT sessions. She has improved- no longer reports
== END 2021-03-05 12:43 | disposition home or self-care (01) ==
LOC: ANHPT 13:00
PROVIDERS: PCP Internal Medicine; Referring Provider Physician Assistant; Visit Provider Internal Medicine
DX: R42 Dizziness and giddiness (principal)
CPT/HCPCS: 97110; 97140; 97161

== ENCOUNTER 2021-09-11 08:30 | Outpatient (RCR) | payer MEDICARE, SELFPAY ==
--- NOTE | 2021-08-21 10:05 | PCCPR ---
Absent-Called and spoke to Samra, has been absent all week. She states she has had a lot of appointments this week between her and her sister (who she cares for). She was going to get her booster shot today. Hopes to return Wednesday. asked her to please call us if she is going to be absent.
== END 2021-09-22 09:19 | disposition home or self-care (01) ==
LOC: ANHCPREHAB 08:30
PROVIDERS: PCP Internal Medicine; Visit Provider Internal Medicine Cardiovascular Disease
DX: Z95.5 Presence of coronary angioplasty implant and graft (principal)
CPT/HCPCS: 93798